=== PATIENT | male | born 1990 | race Two or more races ===

== ENCOUNTER 2022-11-13 07:35 | Day surgery (SDC) | payer MEDICAID ==
[2022-11-07 13:31] LABS: Basophils # (auto) 0.1 10 ^3/uL (0-0.2); Basophils % (auto) 0.9 % (0.0-2.0); Eosinophils # (auto) 0 10 ^3/uL (0-0.8); Eosinophils % (auto) 0.4 % (0.0-7.0); Hematocrit 44.9 % (41.0-53.0); Hemoglobin 15.4 g/dL (13.5-17.5); Lymphocytes # (auto) 1.6 10 ^3/uL (0.4-5.4); Lymphocytes % (auto) 25.7 % (10.0-50.0); Mean Corpuscular Hemoglobin 28.8 pg (28.0-32.0); Mean Corpuscular Hgb Conc. 34.4 g/dL (32.0-36.0); Mean Corpuscular Volume 83.8 fL (80.0-100.0); Monocytes # (auto) 0.5 10 ^3/uL (0-1.3); Monocytes % (auto) 7.4 % (0.0-12.0); Neutrophils # (auto) 4.1 10 ^3/uL (1.6-8.6); Neutrophils % (auto) 65.6 % (37.0-80.0); Red Blood Cells 5.36 10^6/uL (4.5-5.90); Red Cell Distribution Width 13.2 % (11.8-14.3); White Blood Cell 6.2 10^3/uL (4.4-10.8)
[2022-11-07 13:52] LABS: Urine Bacteria NONE SEEN /hpf (None Seen); Urine Blood Negative /uL (Negative); Urine Clarity Clear (Clear); Urine Color Yellow (Yellow); Urine Protein, UAD Negative (Negative); Urine Specific Gravity 1.025 (1.001-1.035); Urine Urobilinogen Normal (Negative); Urine WBC 1 /hpf (0 - 3); Urine pH 5.5 (5.0-8.0)
[2022-11-07 14:05] LABS: Alanine Aminotransferase 27 U/L (7-40); Alkaline Phosphatase 64 U/L (46-116); Chloride 106 mmol/L (98-107)
[2022-11-07 14:06] LABS: Anion Gap 5.6 (5-15); Aspartate Aminotransferase 13 U/L (13-40); Bilirubin, Total 1.1 mg/dL (0.2-1.0); Blood Urea Nitrogen 11 mg/dL (9-23); Carbon Dioxide 28.4 mmol/L (20-30); Glucose 98 mg/dL (74-106); Potassium 3.9 mmol/L (3.5-5.1); Sodium 140 mmol/L (136-145); Total Protein 7.7 g/dL (5.7-8.2)
[2022-11-07 14:11] LABS: INR 1.07 (0.9-1.15); Partial Thromboplastin Time 29.8 SEC (24.5-34.5); Prothrombin Time 11.2 sec (9.3-11.8)
[~2022-11-13] VITALS: Ht 175.3 cm; Wt 83.9 kg
[2022-11-13] MEDS ORDERED: ceFAZolin 1GM/50ML 100 ML IV ONE (08:47)
[2022-11-13] MEDS ORDERED: BACITRACIN TOP OINT 1 UD PKG TOP ONE (09:12)
[2022-11-13] MEDS ORDERED: LIDOCAINE W/ EPINEPHRINE 1% 20ML VIAL ONE (09:12)
[2022-11-13] MEDS ORDERED: fentaNYL CITRATE 100 MCG/2 ML VL ONE (09:22)
[2022-11-13] MEDS ORDERED: MIDAZOLAM HCL 2MG/2ML 2ml VIAL (1mg/ml) ONE (09:24)
[2022-11-13] MEDS ORDERED: ONDANSETRON HCL 4 MG/2 ML VIAL ONE (09:56)
[2022-11-13] MEDS ORDERED: PROPOFOL 10 MG/ML 20 ML IV ONE (09:56)
[2022-11-13 10:10] VITALS: TEMP 97.8
[2022-11-13] MEDS ORDERED: HYDROmorphone HCL 2 MG/ML VL/or syr IV PRN (10:15)
[2022-11-13] MEDS ORDERED: ONDANSETRON HCL 4 MG/2 ML VIAL IV PRN (10:15)
[2022-11-13 10:40] VITALS: BP 132/64; PULSE 61; RESP 12; O2SAT 100
== END 2022-11-13 10:52 | disposition home or self-care (01) ==
LOC: SUR 07:35
PROVIDERS: ATTEND Urology
DX: Z30.09 Encounter for other general counseling and advice on contraception (principal); Z30.2 Encounter for sterilization
CPT/HCPCS: 36415; 55250; 80053; 81001; 85025; 85610; 85730; 87086; J0690; J2250; J2405; J2704; J3010

== ENCOUNTER 2024-04-18 08:17 | Emergency (ER) | payer MEDICAID ==
[~2024-04-18] VITALS: Ht 175.3 cm; Wt 84.3 kg
--- NOTE | 2024-04-18 09:06 | ED.PDOC ---
SOB-HPI HPI Comments 34 year old male presents to the ED with a chief complaint of cough onset 3 weeks. Patient states he began experiencing cough with shortness of breath and wheezing 3 weeks ago, saw PCP and was prescribed z-pac and cough syrup. Patient finished antibiotics 1 week and and has not noticed an improvement. Patient noticed shortness of breath and cough worsens when sleeping. Denies PMHx as well as chest pain, dizziness, nausea, vomiting, diarrhea, headache, congestion. No other symptoms or modifying factors present at this time. Chief Complaint: Cough Time Seen by MD: 08:56 Reviewed notes: Medications, Allergies Information Source: Patient Mode of Arrival: Ambulatory Severity: Moderate Timing: Weeks Duration: Since onset Context: While Asleep PE Risk Factors: None History of: Recent Antibiotic (z-pac) Prehospital treatment: None Associated Signs and Symptoms: Wheeze, Cough Radiation: No Radiation If cough with SOB: Non-Productive Past Medical History PAST MEDICAL HISTORY: Denies Surgical History: Denies all surgeries Family History Family History: Reviewed,noncontributory to illness, No family hx of Cancer, No family hx of DM, No family hx of Heart salima, No family hx of HTN, No family hx ofKidney salima, No family hx of Liver salima, No family hx of Lung sailma, No family hx of Stroke Social History Smoker: Non-Smoker Alcohol: Denies ETOH Use Drugs: Denies Drug Use Lives In: Home Constitutional: denies: chills, diaphoresis, fatigue, fever, malaise, sweats, weakness, others EENTM: denies: blurred vision, double vision, ear bleeding, ear discharge, ear drainage, ear pain, ear ringing, eye pain, eye redness, hearing loss, mouth pain, mouth swelling, nasal discharge, nose bleeding, nose congestion, nose pain, photophobia, tearing, throat pain, throat swelling, voice changes, others Respiratory: reports: cough, shortness of breath; denies: hemoptysis, orthopnea, SOB at rest, SOB with excertion, stridor, wheezing, others Cardiovascular: denies: chest pain, dizzy spells, diaphoresis, Dyspnea on exertion, edema, irregular heart beat, left arm pain, lightheadedness, palpitations, PND, syncope, others Gastrointestinal: denies: abdomen distended, abdominal pain, blood streaked bowels, constipated, diarrhea, dysphagia, difficulty swallowing, hematemesis, melena, nausea, poor appetite, poor fluid intake, rectal bleeding, rectal pain, vomiting, others Genitourinary: denies: burning, dysuria, flank pain, frequency, hematuria, incontinence, penile discharge, penile sore, pain, testicle pain, testicle swelling, urgency, others Neurological: denies: dizziness, fainting, headache, left sided numbness, left sided weakness, numbness, paresthesia, pre-existing deficit, right sided numbness, right sided weakness, seizure, speech problems, tingling, tremors, weakness, others Musculoskeletal: denies: back pain, gout, joint pain, joint swelling, muscle pain, muscle stiffness, neck pain, others Integumetry: denies: bruises, change in color, change in hair/nails, dryness, laceration, lesions, lumps, rash, wounds, others Allergic/Immunocompromised: denies: Difficulty Healing, Frequent Infections, Hives, Itching, others Hematologic/Lymphatic: denies: anemia, blood clots, easy bleeding, easy bruising, swollen glands, others Endocrine: denies: excessive hunger, excessive sweating, excessive thirst, excessive urination, flushing, intolerance to cold, intolerance to heat, unexplained weight gain, unexplained weight loss, others Psychiatric: denies: anxiety, bipolar disorder, depression, hopeless, panic disorder, schizophrenia, sleepless, suicidal, others All Other Systems: Reviewed and Negative Physical Exam General Appearance: Moderate Distress HEENT: Normal ENT Inspection, Pharynx Normal, TMs Normal Neck: Full Range of Motion, Non-Tender, Normal, Normal Inspection Respiratory: Chest Non-Tender, No Accessory Muscle Use, No Respiratory Distress, Other (Coarse breath sounds) Cardiovascular: No Edema, No JVD, No Murmur, No Gallop, Normal Peripheral Pulses, Regular Rate/Rhythm Breast Exam: Deferred Gastrointestinal: No Organomegaly, Non Tender, No Pulsatile Mass, Normal Bowel Sounds, Soft Genitalia: Deferred Pelvic: Deferred Rectal: Deferred Extremities: No calf tenderness, Normal capillary refill, Normal inspection, Normal range of motion, Non-tender, No pedal edema Musculoskeletal : Apperance: Normal Neurologic: Alert, audit practice intern II-XII nml as Tested, No Motor Deficits, Normal Affect, Normal Mood, No Sensory Deficits Cerebellar Function: Normal Reflexes: Normal Skin: Dry, Normal Color, Warm Peripheral Pulses: 3+ Radial (R), 3+ Radial (L) Lymphatic: No Adenopathy Was a procedure done? Was a procedure done?: No Differential Dx Differential Diagnosis: Anxiety, Asthma, Bronchitis X-Ray, Labs, Meds, VS Vital Signs Date Time Temp Pulse Resp B/P (MAP) Pulse Ox O2 Delivery O2 Flow Rate FiO2 04/18/24 08:45 16 95 Room Air 0 04/18/24 08:38 97.7 110 16 160/91 (114) 95 [facility] [address] [facility] [address] Ph: [phone] DIAGNOSTIC IMAGING Diagnostic Imaging Report : [id number] Signed PATIENT: TIFFANI MARQUEZ ACCT: [id number] UNIT: [id number] : 1990 LOC: ER ROOM / BED: / AGE / SEX: 34 / M ADM STATUS: REG ER SERVICE 7 ORDERING PHYSICIAN: MARK MEJIA MD PROCEDURE(s): CXRP - CHEST PORTABLE REASON: cough ORDER NUMBER(s): [id number], ACCESSION NUMBER(s): [id number] CHEST RADIOGRAPH Indication: cough Technique: Single frontal view of the chest was obtained COMPARISON: None FINDINGS: Lines and Tubes: None Lungs: Clear Pleura: No effusion. No pneumothorax. Cardiomediastinal contours: Unremarkable Bones: Unremarkable IMPRESSION: No acute disease. ATED BY: PAPI HARRELL MD DICTATED DATE/TIME: 04/18/24921 SIGNED BY: PAPI HARRELL MD SIGNED DATE/TIME: 04/18/24921 CC: Patient alert. Complaining of cough. Has been having cough for many weeks pain Vitals stable. Had a course of Z-Mahad without any help. He does have coarse breath sounds. Chest x-ray reviewed does not show any acute changes. Was given prescription of prednisolone Levaquin antibiotic. Explained to the patient. Was told to follow up with his primary care physician. Was told to come back if there is any problem. Time of 1ST Reevaluation: :26 Reevaluation 1ST: Unchanged Patient Education/Counseling: Diagnosis, Treatment, Prognosis Family Education/Counseling: No Family Present Additional Information The following tests were ordered, and results were reviewed by me: PATITO WOOD I reviewed and agreed with the following test results read by other providers: PATITO WOOD I discussed treatment and results with medical personnel and patient Departure 1 Departure Time of Disposition: 12:11 Impression: Primary Impression: Pneumonitis Disposition: HOME / SELF CARE / HOMELESS Condition: Good e-Prescriptions Levofloxacin Hemihydrate (LEVOFLOXACIN) 500 Mg Tab 500 MG PO DAILY for 7 Days, #7 MG Prov: MARK MEJIA MD 04/18/24 Prednisone (Prednisone) 10 Mg Tab 10 MG PO DAILY for 7 Days, #7 MG Prov: MARK MEJIA MD 04/18/24 Discharged With: Self Critical Care Note Critical Care Time?: No Stability Stability form required: No Heart Score Heart Score: Heart Score Response (Comments) Value History N/A 0 EKG N/A 0 Age N/A 0 Risk Factors N/A 0 Troponin N/A 0 Total 0 I personally scribed for MARK MEJIA MD ([email or web address]) on 04/18/24 at 09:06. Electronically submitted by Manjula Miller ([email or web address]). I personally scribed for MARK MEJIA MD ([email or web address]) on 04/18/24 at 10:27. Electronically submitted by Manjula Miller ([email or web address]). MARK MEJIA MD Apr 18, 2024 09:06
--- NOTE | 2024-04-18 09:25 | DVH ---
CHEST RADIOGRAPH Indication: cough Technique: Single frontal view of the chest was obtained COMPARISON: None FINDINGS: Lines and Tubes: None Lungs: Clear Pleura: No effusion. No pneumothorax. Cardiomediastinal contours: Unremarkable Bones: Unremarkable IMPRESSION: No acute disease.
[2024-04-18] MEDS ORDERED: PRED10TA PO (12:12)
[2024-04-18] MEDS ORDERED: LEVO500T91 PO (12:12)
[2024-04-18 12:49] VITALS: BP 152/95; PULSE 97; RESP 17; TEMP 99.3; O2SAT 97
== END 2024-04-18 12:54 | disposition home or self-care (01) ==
LOC: ER 08:17
DX: J18.9 Pneumonia, unspecified organism (principal)
CPT/HCPCS: 71045